=== PATIENT | female | born 1975 | race Two or more races ===

== ENCOUNTER 2021-10-03 10:02 | Inpatient (IN) | payer BC ==
[~2021-10-03] VITALS: Ht 152.4 cm; Wt 45.8 kg
--- NOTE | 2021-10-03 10:32 | NUR ---
DR BRICE AT BEDSIDE FOR EVAL
--- NOTE | 2021-10-03 10:45 | NUR ---
HERNAN KWAN [phone]
--- NOTE | 2021-10-03 10:52 | NUR ---
POISON CONTROL [phone] PER CRISTOFER: 8-12 HOURS OBS TIME PENDING ON LITHIUM LEVELS TOO LATE FOR CHARCOAL LOOK FOR HYPOTENSION & TACHYCARDIA CMS DEPRESSION SEIZURE RESPIRATORY DEPRESSION EKG: Q4 PROLONG QTC BRADYCARDIA LOOK FOR T-WAVE ABNORMALITY CAN ACCOMPANY AGITATION SEDATION CONFUSION HYPERTHERMIA TREMORS CHEMISTRY & LITHIUM Q4 UNTIL YOU SEE DOWNTRENDING NS 150ML/H TO FLUSH OUT LITHIUM SODIUM M 140-145 WANTED WILL HELP EXCRETE Q 4 EKG IF LONG PROLONGED QTC GIVE MAG IV SUPPORTIVE CARE IF LITHIUM >4 WITH AGITATION CONSULT NEPHRO FOR DIALYSIS FOR BENZTROPINE SEE EKG IF QRS WIDENING OBSERVED >120 THEN SODIUM BICARB
[2021-10-03 11:12] LABS: BASOPHILS % (AUTO) 0.5 % (0.0-2.0); EOSINOPHILS % (AUTO) 0.4 % (0.0-6.0); HEMATOCRIT 39 % (33-45); HEMOGLOBIN 12.9 g/dL (11.5-14.8); LYMPHOCYTES # (AUTO) 0.9 K/uL (0.8-4.8); MEAN CORPUSCULAR HGB CONC 33 g/dl (31.0-36.0); MEAN CORPUSCULAR VOLUME 95 fL (82-100); MONOCYTES # (AUTO) 0.2 K/uL (0.1-1.30); MONOCYTES % (AUTO) 4.6 % (2.0-12.0); NEUTROPHILS # (AUTO) 3.3 K/uL (1.8-8.9); NEUTROPHILS % (AUTO) 73.5 % (43.0-81.0); PLATELET COUNT (AUTO) 273 K/uL (150-450); RED BLOOD CELL COUNT(AUTO) 4.09 MIL/uL (4.0-5.2); WHITE BLOOD COUNT (AUTO) 4.5 K/uL (4.3-11.0)
[2021-10-03 11:29] LABS: ALANINE AMINOTRANSFERASE 27 U/L (12-78); ALKALINE PHOSPHATASE 46 U/L (46-116); ASPARTATE AMINOTRANSFERASE 22 U/L (15-37); BILIRUBIN,DIRECT 0.1 mg/dL (0.0-0.2); BILIRUBIN,TOTAL 0.4 mg/dL (0.2-1.0); CALCIUM, SERUM 8.9 mg/dL (8.5-10.1); CARBON DIOXIDE 33 mmol/L (21-32); CHLORIDE 104 mmol/L (98-107); CREATININE 0.6 mg/dL (0.6-1.3); GLUCOSE 115 mg/dL (74-106); POTASSIUM 3.1 mmol/L (3.5-5.1); SODIUM SERUM 140 mmol/L (136-145); TOTAL PROTEIN, SERUM 7.6 g/dL (6.4-8.2); UREA NITROGEN, BLOOD 10 mg/dL (7-18)
[2021-10-03 12:02] LABS: ACETAMINOPHEN 0 ug/ml (10-30)
--- NOTE | 2021-10-03 12:02 | NUR ---
Dozing- easily awakened Resp. Even and unlabored
[2021-10-03 12:03] LABS: ALCOHOL, BLOOD < 3 mg/dL (0-0)
--- NOTE | 2021-10-03 12:24 | NUR ---
URINE COLLECTED AND SENT TO LAB
[2021-10-03 12:36] LABS: BILIRUBIN,URINE NEGATIVE (NEGATIVE); LEUKOCYTE ESTERASE ,URINE NEGATIVE (NEGATIVE); NITRITE, URINE NEGATIVE (NEGATIVE); PH,URINE 8.5 (5.0-8.0); PROTEIN,URINE NEGATIVE (NEGATIVE); UGLUCOSE NEGATIVE (NEGATIVE); UROBILINOGEN,URINE 0.2 EU/dL (0.2)
[2021-10-03 13:08] LABS: COLOR,URINE LIGHT YELLOW (YELLOW)
[2021-10-03 13:10] LABS: BACTERIA,URINE None seen /HPF (None Seen); RBC,URINE 0-2 /HPF (0-2); SQUAMOUS EPITHELIAL CELL,UR None Seen /HPF (None Seen); WBC,URINE NONE SEEN /HPF (0-3)
--- NOTE | 2021-10-03 13:45 | NUR ---
PT ASLEEPY NO DISTRESS AT THIS TIME
--- NOTE | 2021-10-03 13:58 | NUR ---
[facility] Inpatient Psychiatry: [phone]
--- NOTE | 2021-10-03 15:00 | NUR ---
in to see pt. Updated with plan of care
--- NOTE | 2021-10-03 16:00 | NUR ---
asleepy no sob
--- NOTE | 2021-10-03 17:00 | NUR ---
SPOKE TO CRISTOFER OF POISON CONTROL ( ) UPDATED WITH PATIENT STATUS AND VITAL SIGNS. INFORMED THEM WITH LAB RESULTS. POISON CONTROL PERSONNEL RECOMMENDATION: -REPEAT LITHIUM LEVEL TWO TIMES EVERY 4 HOURS, IF TWO RESULTS TRENDING DOWN THEN PATIENT CAN BE CLEARED. -IVPB 0.9% NS 1000ML, TO RUN AT 150ML/HR UNTIL LITHIUM TRENDS DOWN. -REPEAT EKG. MADE MD AWARE.
[2021-10-03] MEDS ORDERED: IV NS 0.9% 1,000 ML BAG IV ONE (17:30)
--- NOTE | 2021-10-03 19:25 | NUR ---
LAB PAGED FOR REPEAT LITHIUM DRAW
--- NOTE | 2021-10-03 19:30 | NUR ---
HAND OFF TO ESE MENDEZ
--- NOTE | 2021-10-03 19:31 | NUR ---
APPRENTICESHIP TRAINING REPRESENTATIVE AT BEDSIDE FOR REPEAT LITHIUM DRAW
[2021-10-03] MEDS ORDERED: POTASSIUM CHLORIDE 20 MEQ TAB.PRT.SR PO ONE ×2 (22:29→22:30)
--- NOTE | 2021-10-04 00:14 | NUR ---
EPIC PANEL PAGED
--- NOTE | 2021-10-04 01:07 | NUR ---
PT PROVIDED WITH DINNER. TOLERATING WELL. ABLE TO MAKE ALL NEEDS KNOWN AND CALL LIGHT WITHIN REACH. REMAINS ON MONITOR AND V/S WNL
[2021-10-04] MEDS ORDERED: ZOLPIDEM TARTRATE 5 MG TABLET PO PRN (01:30)
[2021-10-04] MEDS ORDERED: MAG HYDROX/AL HYDROX/SIMETH 30 ML UDC PO PRN (01:30)
[2021-10-04] MEDS ORDERED: Z GUARD REMEDY 4 OZ OINT TP PRN (01:30)
[2021-10-04] MEDS ORDERED: IV NS 0.9% 1,000 ML IV SCH (01:30)
[2021-10-04] MEDS ORDERED: ONDANSETRON HCL/PF 4 MG/2 ML VIAL IVP PRN (01:30)
[2021-10-04] MEDS ORDERED: ACETAMINOPHEN 325 MG TABLET PO PRN (01:30)
[2021-10-04] MEDS ORDERED: MAGNESIUM HYDROXIDE 30 ML UDC PO PRN (01:30)
--- NOTE | 2021-10-04 03:59 | NUR ---
RECIEVED BED 321
--- NOTE | 2021-10-04 04:43 | NUR ---
SPRINKLER FITTER APPRENTICE AT BEDSIDE
[2021-10-04 04:57] LABS: BASOPHILS % (AUTO) 0.4 % (0.0-2.0); HEMATOCRIT 33 % (33-45); LYMPHOCYTES # (AUTO) 0.9 K/uL (0.8-4.8); LYMPHOCYTES % (AUTO) 12.2 % (20.0-44.0); MEAN CORPUSCULAR HGB CONC 33 g/dl (31.0-36.0); MEAN CORPUSCULAR VOLUME 96 fL (82-100); MONOCYTES # (AUTO) 0.6 K/uL (0.1-1.30); MONOCYTES % (AUTO) 8.2 % (2.0-12.0); NEUTROPHILS # (AUTO) 5.9 K/uL (1.8-8.9); NEUTROPHILS % (AUTO) 78.2 % (43.0-81.0); PLATELET COUNT (AUTO) 237 K/uL (150-450); RED BLOOD CELL COUNT(AUTO) 3.46 MIL/uL (4.0-5.2); WHITE BLOOD COUNT (AUTO) 7.5 K/uL (4.3-11.0)
[2021-10-04 05:12] LABS: CALCIUM, SERUM 8.3 mg/dL (8.5-10.1); CREATININE 0.7 mg/dL (0.6-1.3); MAGNESIUM 2.3 mg/dL (1.8-2.4); PHOSPHORUS 2.5 mg/dL (2.5-4.9); POTASSIUM 4.4 mmol/L (3.5-5.1)
--- NOTE | 2021-10-04 07:37 | NUR ---
REPORT GIVEN TO MARIANNE
--- NOTE | 2021-10-04 08:05 | NUR ---
TO ROOM 321
[2021-10-04] MEDS ORDERED: TEMA30CA PO (08:12)
[2021-10-04] MEDS ORDERED: HYDR50TA61 PO (08:12)
[2021-10-04] MEDS ORDERED: OLAN5TAB3 PO (08:12)
[2021-10-04] MEDS ORDERED: ROSU10TA29 PO (08:12)
--- NOTE | 2021-10-04 08:20 | NUR ---
BRICK PAVER ADMITTING NOTES: ADMITTED A 46 YO FEMALE FROM EMERGENCY DEPT @0820, ACCOMPANIED BY TRANSPORTER VIA WHEELCHAIR. PATIENT A/O X 4, ABLE TO VERBALIZED NEEDS. NO SOB OR CARDIAC DISTRESS NOTED. ON ROOM AIR AND TOLERATED WELL. VITAL SIGNS WITHIN NORMAL LIMITS BP 112/81, RR 20, TEMP 97.9F, O2 SAT 97%,PULSE 84.ON TELEMONITOR WITH CURRENT READING OF SINUS RHYTHM @84 BPM. LUNGS CLEAR UPON AUSCULTATION, ABDOMEN NOT DISTENDED NON TENDER AND NOTED BOWEL SOUND IN 4 QUADRANT. WITH IV ACCESS ON LAC G#20 NS SALINE LOCKED, PATENT AND INTACT. ABLE TO MOVE UPPER AND LOWER EXTREMITIES FREELY. BODY ASSESSMENT DONE PHOTOS OF SKIN ISSUES TAKEN AND FILED IN PATIENT'S CHART . PATIENT ORIENTED TO UNIT, STAFF AND HOW TO USE CALL LIGHT AND BED CONTROL IN CASE SHE NEEDS HELP. PROVIDED PITCHER OF WATER AND BED SIDE TABLE. SAFETY PRECAUTIONS OBTAINED: BED LOCKED AND IN LOWEST POSITION, SIDE RAILS UP X 2. CALL LIGHT IN EASY REACH FOR HELP/ASSISTANCE. WITH 1:1 SEATER FOR CLOSED MONITORING.
[2021-10-04] MEDS: IV NS 0.9% 1,000 ML IV SCH ×3 (09:05→19:02)
--- NOTE | 2021-10-04 09:10 | NUR ---
RN NOTES: HOOKED TO NS @200ML/HR. PATIENT APPEARED ANXIOUS PER PATIENT SHE WANT TO GO TO HER OUT PATIENT APPOINTMENT FOR DEPRESSION. I TOLD HER WE WILL KEEP AND MONITOR HER HERE IN THE HOSPITAL FOR NOW.
[2021-10-04 09:36] VITALS: BP 112/81
--- NOTE | 2021-10-04 09:56 | NUR ---
RN NOTES: EKG DONE, DR VENCES IN THE UNIT RELAYED/SHOWED THE RESULT. SEEN AND EXAMINED BY DR VENCES TO REFER PATIENT TO CARDIO AND PSYCHE.
[2021-10-04 11:56] LABS: CALCIUM, SERUM 8.7 mg/dL (8.5-10.1); CREATININE 0.6 mg/dL (0.6-1.3); POTASSIUM 4.2 mmol/L (3.5-5.1)
[2021-10-04 12:00] VITALS: BP 96/67
[2021-10-04 12:02] LABS: ALBUMIN 3.6 g/dL (3.4-5.0); BILIRUBIN,TOTAL 0.4 mg/dL (0.2-1.0); TOTAL PROTEIN, SERUM 7.1 g/dL (6.4-8.2)
--- NOTE | 2021-10-04 12:30 | NUR ---
RN NOTES: URINE SPECIMEN COLLECTED, CALLED LAB AND FOR HARNESS MAKER.
[2021-10-04 12:58] LABS: CHOLESTEROL 152 mg/dL (<200); HDL CHOLESTEROL 53 mg/dL (40-60); LDL 91 mg/dL (0-99); TRIGLYCERIDES 58 mg/dL (30-150)
[2021-10-04 13:29] LABS: CALCIUM, SERUM 8.3 mg/dL (8.5-10.1); CREATININE 0.7 mg/dL (0.6-1.3); POTASSIUM 3.9 mmol/L (3.5-5.1)
[2021-10-04 13:34] LABS: ALBUMIN 3.1 g/dL (3.4-5.0); BILIRUBIN,TOTAL 0.2 mg/dL (0.2-1.0); TOTAL PROTEIN, SERUM 6.2 g/dL (6.4-8.2)
--- NOTE | 2021-10-04 14:04 | NUR ---
SS Note: Pt. Is a 46-year-old female who demonstrates adequate insight to the reason for hospitalization. Per EMR, pt. came from home for vomiting and took mixture of 15 unknown pills. Pt. was oriented x3, alert, and cooperative. During interview, pt. was capable of following directions and appeared groomed. Pt.s speech was at a normal rate and pt.s mood was elevated. Pt. reported no hx of mental health, substance abuse, suicidal ideation, or homicidal ideation. Pt. denies auditory hallucinations, visual hallucinations, paranoia, or delusions. SW explored pt.s living situation. Per pt., she lives with her family [[address] [address] pt. would not provide actual address]. Pt. stated that her family is very supportive, and her overdose was not on purpose. Pt. does not know the name of the medication that she overdosed on, but she stated that her psychiatrist provided her with it. Per pt., it gives her bad side effects. Pt. stated that she does not like to see psychiatrists because all they do is drug her. Plan: SW provided available resources and pt. rejected. Crisis will evaluate pt. once she is medically cleared. Resources Provided: Counseling--Outpatient [facility] [address] [facility], [place] [place] [address] (Specializes in in-depth psychotherapy for emotional distress: anxiety, depression, interpersonal conflicts, life transitions, childhood abuse) [facility] [address] [place] [address] (Assist with solving problem marital difficulties, separation & divorce, aging parents, & grief, chronic & terminal illness) [facility] [address] [place] [address] (Deal with loss & grief, anxiety, marital difficulties) [facility] [address] [place] [address] (Provide in-home mental services to people who are incapable of leaving their homes) [facility] [address] [address] [facility] [address] [place] [address] PSYCHIATRIC OUTPATIENT SERVICES [facility] Partial Hospitalization and Intensive Outpatient Program (Managed Care and [place] Only)[address] [facility] [phone] [facility] Partial Hospitalization and Outpatient [id number] [place], [place] [phone] [facility] [place] [id number] [place], [place] [phone] [facility] and Outpatient [id number] [facility] Center[facility], [phone] Substance Abuse resources provided included: [facility] Substance Abuse Self-Helpline ([facility]) ; [facility] [address] [facility] [place] [id number] ; [facility] [address] [facility] [address] ; [facility] [address] [facility] [address] ; [facility] [address] [facility] [facility] [phone] ; [facility] [address] [facility] [address] ; [facility] [place] [address] [facility] [address] ; [facility] Substance Abuse Helpline(SAS)-[facility] ; [facility] ; [facility] [place] [facility]; [facility] [place]; [facility] [place]; [facility] Danilo Schmitzthao; [facility] [place]; [place]; [facility]; [facility], [facility]. Maulik Díaz; Alcoholics Anonymous -[facility]; [place] ; Marijuana Anonymous [facility]; Narcotics Anonymous www.na.org;
--- NOTE | 2021-10-04 14:39 | NUR ---
RN NOTES: RELAYED EKG RESULT TO DR VENCES, DR VENCES ORDERED: DC EKG MONITORING,DC LITHIUM ORDERS AND DC CMP. ORDERS NOTED AND CARRIED OUT. \ INFORMED DR VENCES PATIENT WAS EVALUATED BY CRISIS TEAM PER CRISIS TEAM PATIENT IS 5150 AND WILL WAIT FOR PSYCHE EVAL.
--- NOTE | 2021-10-04 18:43 | NUR ---
TRIM AND BURR OPERATOR CLOSING NOTES: PATIENT AWAKE, APPEARED MORE RELAXED. A/O X 4 AND ABLE TO VERBALIZED NEEDS. NO CARDIAC OR RESPIRATORY DISTRESS NOTED, AFEBRILE. WITH NEUROLOGY NURSE WITH CURRENT READING SINUS RHYTHM @78 BPM. IV ACCESS ON LAC G#20 PATENT AND INTACT INFUSING NS @200ML/HR WELL.SAFETY MEASURES MAINTAINED: BED ON LOWEST LOCKED POSITION, SIDE RAILS UP X 2 CALL LIGHT IN EASY REACH. PATIENT STABLE AT THIS TIME, DID NOT VERBALIZED OF SCAPPING OR HURTING HER SELF. , WILL MONITOR FOR ANY SIGNIFICANT CHANGES. ENDORSED TO NEXT SHIFT FOR CHRISTIE.
[2021-10-04 19:57] VITALS: BP 115/77
--- NOTE | 2021-10-04 20:00 | NUR ---
RECEIVED PATIENT IN BED, ALERT, ORIENTED X4, CALM, TALKING TO FAMILY MEMBER AT THE BEDSIDE, DANGER TO SELF, SITTER AT THE BEDSIDE. MONITOR LITHIUM LEVEL.
[2021-10-04] MEDS: OLANZAPINE 5 MG TABLET PO PRN (21:19)
[2021-10-04 21:20] VITALS: BP 104/67
[2021-10-04] MEDS ORDERED: ATORVASTATIN 10 MG TABLET PO SCH (22:00)
[2021-10-04 23:00] VITALS: BP 110/64
[2021-10-05] MEDS: IV NS 0.9% 1,000 ML IV SCH ×2 (00:19→04:49)
[2021-10-05 01:00] VITALS: BP 105/68
[2021-10-05 03:01] VITALS: BP 108/68
[2021-10-05 05:40] VITALS: BP 115/74
--- NOTE | 2021-10-05 06:43 | NUR ---
ATTENTION SEEKING, DEPRESSED, REQUESTING FOR RESTORIL AND ATARAX, DR. VENCES HELD MEDICATIONS DUE TO ELEVATED LEVEL OF BENZODIAZEPINES. DID NOT SLEEP ALL NIGHT. NS AT 200 ML/HR, LATEST LITHIUM LEVEL 0.53 10/04/21 AT 1310H. FOR PSYCH CONSULT WITH DR. SOSA, IVF HYDRATION, CRISIS TEAM WILL EVALUATE WHEN MEDICALLY STABLE, 5150 HOLD FOR 72 HOURS, WILL END 10/06/21. SITTER AT THE BEDSIDE.
[2021-10-05 07:08] VITALS: BP 108/67
--- NOTE | 2021-10-05 07:20 | NUR ---
MS RN NOTES PATIENT IN BED, ALERT ORIENTED X 4, NO ACUTE DISTRESS NOTED.BREATHING UNLABORED. SAFETY MEASURES IN PLACE, CALL LIGHT WITHIN REACH. WILL CONTINUE TO MONITOR ACCORDINGLY. SITTER AT BEDSIDE.
--- NOTE | 2021-10-05 08:45 | NUR ---
PATIENT SEEN AND EVALUATED BY DR VANGIE DURBIN WITH NO NEW ORDER MADE.
--- NOTE | 2021-10-05 16:44 | NUR ---
copy of 14 day hold served to the pt with GPS charge nurse at the bedside.
--- NOTE | 2021-10-05 16:45 | NUR ---
RN NOTES HERNAN KWAN CALLED AND UPSET SAYING THAT HER NEEDS TO BE TRANSFER NOW TO [facility] AND WANT TO OILSEED MEAT PRESSER THE AND TAKE TO [facility] EMERGENCY ROOM, MENTIONED TO TO THE THAT PATIENT ON 14 DAY HOLD AND CAN'T PICK THE PATIENT NOW DUE TO 14 DAYS HOLD AND ACTIVITY COORDINATOR SUBMITTED SEVERAL INQUIRY TO OTHER HOSPITAL AND IF HE PREFERS [facility] ACTIVITY COORDINATOR WORKING ON INQUIRY FOR TRANSFER IN ORDER TO START THE TRANSFER TO THE ANOTHER FACILITY. PROVIDED DR SOSA FOR FURTHER QUESTIONS.
[2021-10-05] MEDS: CARBAMAZEPINE 200 MG TABLET PO SCH ×2 (17:00→17:23)
--- NOTE | 2021-10-05 17:37 | NUR ---
PATIENT REFUSED MEDICATION TEGRETOL, RISKS AND BENEFITS EXPLAINED , VERBALIZED UNDERSTANDING
--- NOTE | 2021-10-05 18:57 | NUR ---
S RN NOTES PATIENT IN BED, ALERT ORIENTED X 4, NO ACUTE DISTRESS NOTED.BREATHING UNLABORED. SAFETY MEASURES IN PLACE, CALL LIGHT WITHIN REACH. SITTER AT BEDSIDE. NEEDS ATTENDED AND ANTICIPATED.WILL ENDORSE TO NIGHT NURSE FOR CONTINUITY OF CARE
--- NOTE | 2021-10-05 19:39 | NUR ---
RECEIVED LETTER FROM PATIENT REFUSING NEWLY PRESCRIBED MEDICATIONS FROM DR. SOSA, [place] AND [place]I. ALSO, PATIENT WANTS TO CHALLENGE THE 14-DAY HOLD. NOTIFIED DR. SOSA VIA PHONE. AWAITING CALL BACK.
[2021-10-05 20:00] VITALS: BP 120/80
--- NOTE | 2021-10-05 20:00 | NUR ---
RECEIVED PATIENT IN BED, ALERT/ORIENTED X4, DISHEVELLED, ANXIOUS, RESTLESS, REPEATED REQUEST, 5250 HOLD IN EFFECT, INDEPENDENT WITH AMBULATION, SITTER AT THE BEDSIDE. RECEIVED LETTER IN BEHALF OF THE PATIENT REGARDING REFUSAL OF REMERON AND TEGRETOL AND REQUEST TO BE DISCHARGED ON 10/07/21.
--- NOTE | 2021-10-05 20:27 | NUR ---
RN MICA PLATE LAYER HAND DENITA AND CHARGE NURSE ANMOL SPOKE TO REGARDING HOW TO CHALLENGE A 14-DAY HOLD.
[2021-10-05] MEDS: OLANZAPINE 5 MG TABLET PO PRN (20:51)
[2021-10-05] MEDS: MIRTAZAPINE 15 MG TABLET PO SCH (21:02)
--- NOTE | 2021-10-05 21:03 | NUR ---
REFUSED REMERON, RISKS AND BENEFITS EXPLAINED TO PATIENT
--- NOTE | 2021-10-05 22:48 | NUR ---
NO CALL BACK FROM DR. SOSA, CALLED X2. PATIENT REQUESTING RESTORIL AND ATARAX FOR ANXIETY. DR. CHRISTIANSEN CANNOT PRESCRIBE SUCH MEDICATIONS BECAUSE PATIENT IS UNDER 5250 HOLD.
[2021-10-06 04:00] VITALS: BP 116/77
--- NOTE | 2021-10-06 06:53 | NUR ---
DEPRESSED, POOR INSIGHT INTO SITUATION, REPEATED REQUEST OF RESTORIL AND ATARAX, DID NOT SLEEP, SELECTIVE WITH MEDICATION. CONTINUE 5250 HOLD, SITTER AT THE BEDSIDE FOR SAFETY.
--- NOTE | 2021-10-06 07:22 | NUR ---
MS RN OPENING NOTES RECEIVED PATIENT SITTING IN CHAIR WITH SPEAKING WITH SITTER. PATIENT EXPRESSES CONCERN ABOUT NOT BEING ABLE TO SLEEP. PATIENT IS ABLE TO MAKE NEEDS KNOWN. PATIENT IS ON A 5250 HOLD. SKIN HAS BACK REDNESS, R KNEE ABRASION, AND L MACKEY ABRASION. LAC IV #20 SL, INTACT AND PATENT. SAFETY MEASURES IN PLACE: BED IN LOW POSITION, BRAKES LOCKED, SIDE RAILS UP X2, CALL LIGHT WITHIN REACH. WILL CONTINUE TO MONITOR FOR CHRISTIE.
[2021-10-06 08:00] VITALS: BP 107/71
[2021-10-06] MEDS: CARBAMAZEPINE 200 MG TABLET PO SCH ×2 (09:00→17:00)
--- NOTE | 2021-10-06 09:00 | NUR ---
RN NOTES PT REFUSED TEGRETOL, ALL RISKS AND BENEFITS EXPLAINED. PATIENT SAYS SHE WANTS HER OLD MEDICATION THAT SHE USED TO TAKE BEFORE. WILL CONTINUE TO MONITOR.
[2021-10-06 16:00] VITALS: BP 116/69
--- NOTE | 2021-10-06 16:50 | NUR ---
RN NOTES VISITED PT TODAY, INFORMED CHARGE NURSE AND RN ABOUT LETTERS TO DR. HANKINS, LETTERS WERE FILED INTO PT CHART AND FLAGGED FOR TO SEE. PT AND BOTH DO NOT WANT PT TAKING MEDICATION TEGRETOL AND REMERON.
--- NOTE | 2021-10-06 19:25 | NUR ---
MS RN CLOSING NOTES PATIENT SITTING IN CHAIR ON PHONE, NO S/S OF SOB, ABLE TO VERBALIZE NEEDS. PATIENT IS ON A 5250 HOLD. STABLE ON ROOM AIR, ABLE TO AMBULATE. SKIN HAS BACK REDNESS, R KNEE ABRASION, AND L MACKEY ABRASION. LAC IV #20 SL, INTACT AND PATENT. SHOWER TAKEN TODAY. SAFETY MEASURES MAINTAINED: BED IN LOW POSITION, BRAKES LOCKED, SIDE RAILS UP X2, CALL LIGHT WITHIN REACH. ENDORSED TO NEXT SHIFT ANY CHRISTIE.
[2021-10-06 20:00] VITALS: BP 100/63
[2021-10-06] MEDS ORDERED: TEMAZEPAM 15 MG CAPSULE PO PRN (20:30)
--- NOTE | 2021-10-06 20:30 | NUR ---
MS RN OPENING NOTES: RECEIVED PATIENT AWAKE IN BED A/OX4 AMBULATORY WITH 1:1 SITTER ON ROOM AIR SATURATING WELL, NO COMPLAIN OF PAIN AND DISCOMFORT AT THIS TIME, PATIENT KEPT CLEAN AND DRY ALL NEEDS MET WILL CONTINUE TO MONITOR.
--- NOTE | 2021-10-06 20:35 | NUR ---
MSRN PLACED RETURN CALL TO PT AND INFORMED THAT DR SOSA WILL COME TONIGHT.
--- NOTE | 2021-10-06 21:10 | NUR ---
MSRN DR SOSA CAME SPOKE TO PATIENT. MEDICATION REGIMEN REVIEWED WITH PATIENT BY MD. PATIENT EMPHASIZED RESTORIL 30 MG AND HYDROXIZINE [address] SOSA CALLED AND WAS UPDATED.
[2021-10-06] MEDS ORDERED: hydrOXYzine 10 MG TABLET PO ONE (21:30)
[2021-10-06] MEDS: MIRTAZAPINE 15 MG TABLET PO SCH (22:00)
[2021-10-06] MEDS ORDERED: hydrOXYzine 10 MG TABLET ONE ×2 (22:30→22:40)
[2021-10-06] MEDS: OLANZAPINE 5 MG TABLET PO PRN (23:02)
--- NOTE | 2021-10-07 06:19 | NUR ---
RN CLOSING NOTES: PATIENT SLEEP IN BED COMFORTABLY, , BED IN LOW POSITION CALL LIGHTS WITHIN REACH, NO COMPLAIN OF PAIN AND DISCOMFORT AT THIS TIME, PATIENT IS A/OX4 AMBULATORY ABLE TO MAKE NEEDS KNOWN, ON ROOM AIR SATURATING WELL WITH : 1:1 SITTER, PATIENT KEPT CLEAN AND DRY ALL NEEDS ATTENDED ENDORSE TO INCOMING SHIFT.
--- NOTE | 2021-10-07 07:10 | NUR ---
MS RN OPENING NOTES RECEIVED PATIENT IN BED RESTING, AWAKE ALERT, RESTING IN BED AT THIS TIME. ON ROOM AIR. NO S/S OF SOB OR DISTRESS NOTED. PATIENT IS ORIENTED X4, ANXIOUS ABOUT THE PLAN OF CARE. ABLE TO MAKE NEEDS KNOWN, AMBULATORY. SKIN: BACK REDNESS, R KNEE SKIN ABRASION, L MACKEY ABRASION. IV SITE LAC #20 SL. SITTER IN ROOM WITH PATIENT. SAFETY PRECAUTIONS IN PLACE: BED AT LOW POSITION, BREAKS LOCKED, SIDE RAILS UP X2, HOB ELEVATED AND CALL LIGHT WITHIN REACH. WILL CONTINUE TO MONITOR FOR CHRISTIE. Addendum: 10/07/21 at 0751 by JOHN SIMON RN ADDENDUM: PT CURRENTLY ON [address] HANKINS.
--- NOTE | 2021-10-07 07:43 | NUR ---
MS RN OPENING NOTES RECEIVED PATIENT IN BED, A/O X2, CONFUSED. ON ROOM AIR; BREATHING EVEN AND UNLABORED; NO SOB NOTED. ABLE TO VERBALIZE NEEDS. NO COMPLAINS OF PAIN. PATIENT IS ON A 5250 HOLD. LAC IV G#20 SL, INTACT AND PATENT. SAFETY MEASURES MAINTAINED: BED IN LOW POSITION AND LOCKED, SIDE RAILS UP X2, CALL LIGHT WITHIN REACH. WILL CONTINUE TO MONITOR PATIENT. Addendum: 10/07/21 at 0817 by JACKLYN GUEVARA RN WRONG PATIENT
--- NOTE | 2021-10-07 08:06 | NUR ---
WOUND CARE CONSULT: PT PRESENTS WITH DRY SCRATCHES AND ABRASIONS TO LEGS, PRESENT ON ADMISSION. NO DRAINAGE, ERYTHEMA OR TENDERNESS NOTED. WILL SEE PRN.
[2021-10-07] MEDS: CARBAMAZEPINE 200 MG TABLET PO SCH (09:00)
--- NOTE | 2021-10-07 09:06 | NUR ---
BROCK Note: BROCK spoke with patient's Fredy ([phone]) and discussed discharge plan. Fredy sent this journalists and other writers a letter that the hospital and doctor are not responsible for pt's discharge. BROCK placed in pt's chart.
--- NOTE | 2021-10-07 12:57 | NUR ---
RN AMA NOTES PT AND VERBALIZED SINCE PERVIOUS SHIFT THAT THEY WISH TO GO AMA TODAY. STAFF EXPLAINED RISKS OF LEAVING HOSPITAL, BENEFITS OF STAYING AT THE HOSPITAL EXPLAINED. PT AND VERBALIZED UNDERSTANDING BU STILL WANT TO GO AMA. 5250 HOLD WAS D/C PER DR. SOSA THIS MORNING. SENT HOSPITAL A WRITTEN LETTER ABOUT HOSPITAL AND NOT RESPONSIBLE FOR ANY RESULTS AFTER PT WENT AMA. IV ACCESS REMOVED LAC PRESSURE AND DRESSING APPLIED TO SITE, ID BAND REMOVED. NO HOMICIDAL OR SUICIDAL IDEATIONS NOTED OR VERBALIZED AT THIS TIME. PT LEFT WITH , AMBULATORY AT @1257 WITH RED SUITCASE.
== END 2021-10-07 13:00 | disposition left against medical advice (07) | DRG 918 ==
LOC: ER 10:08 → TRANSITION 10-04 02:39 → TELE 10-04 07:40 → MED 10-05 21:37
PROVIDERS: ADMIT Internal Medicine; ATTEND Internal Medicine
DX: T43.592A Poisoning by other antipsychotics and neuroleptics, intentional self-harm, initial encounter (principal); F31.5 Bipolar disorder, current episode depressed, severe, with psychotic features; E87.6 Hypokalemia; H55.00 Unspecified nystagmus; Y92.099 Unspecified place in other non-institutional residence as the place of occurrence of the external cause; Z20.822 Contact with and (suspected) exposure to COVID-19; F41.9 Anxiety disorder, unspecified; D64.9 Anemia, unspecified; R00.1 Bradycardia, unspecified; R73.9 Hyperglycemia, unspecified; I95.9 Hypotension, unspecified
CPT/HCPCS: 36415; 80048-TC; 80053-TC; 80061-TC; 80076-TC; 81001; 83735-TC; 84100-TC; 84703-TC; 85025-TC; 87081-TC; C9803; G0378; G0480; J2405; J7030; Q0177